=== PATIENT | male | born 1975 | race Hispanic/Latino ===

== ENCOUNTER 2017-08-21 15:37 | Observation (INO) | payer OTHER ==
[~2017-08-21] VITALS: Ht 167.6 cm; Wt 106.3 kg
[2017-08-21 16:13] LABS: BASOPHILS % (AUTO) 0.8 % (0.0-5.0); EOSINOPHILS % (AUTO) 2.5 % (0.0-8.0); HEMATOCRIT 39.3 % (42-54); LYMPHOCYTES % (AUTO) 36.4 % (21.0-51.0); MEAN CORPUSCULAR HEMOGLOBIN 30.7 pg (27.0-33.0); MEAN CORPUSCULAR HGB CONC 35.3 g/dL (32.0-36.0); MONOCYTES % (AUTO) 7.9 % (3.0-13.0); NEUTROPHILS % (AUTO) 52.4 % (40.0-77.0); PLATELET COUNT (AUTO) 380 K/uL (130-400); RED BLOOD CELL COUNT(AUTO) 4.52 MIL/uL (4.50-6.20); RED CELL DISTRIBUTION WIDTH 13.2 % (11.0-15.5); WHITE BLOOD COUNT (AUTO) 8.5 K/uL (4.8-10.8)
[2017-08-21 16:22] LABS: POTASSIUM 3.3 mmol/L (3.5-5.1)
[2017-08-21 16:27] LABS: ALBUMIN 3.2 g/dL (3.5-5.0); BILIRUBIN,TOTAL 0.2 mg/dL (0.2-1.0); TOTAL PROTEIN, SERUM 7.5 g/dL (6.0-8.3)
[2017-08-21] MEDS ORDERED: ASPIRIN 325 MG TABLET ONE (17:55)
[2017-08-21] MEDS ORDERED: POTASSIUM CHLORIDE 20MEQ/100ML 100 ML IV PRN (21:15)
[2017-08-21] MEDS: LACTATED RINGERS 1000ML 1,000 ML IV SCH (21:15)
[2017-08-21] MEDS ORDERED: CEFTRIAXONE 1GM/D5W 50ML 50 ML IV SCH (21:15)
[2017-08-21] MEDS ORDERED: LABETALOL 20 MG/4 ML DISP.SYRIN IV PRN (21:15)
[2017-08-21] MEDS ORDERED: POTASSIUM CHLORIDE 10% ELIXIR 20 MEQ/15 ML UDCUP PO PRN (21:15)
[2017-08-21] MEDS ORDERED: HYDRALAZINE HCL 20 MG/ML VIAL IV PRN (21:15)
[2017-08-21] MEDS ORDERED: LIDOCAINE HCL-MPF 1% 2ML VIAL IVP PRN (21:15)
[2017-08-21] MEDS ORDERED: POTASSIUM CHLORIDE 20 MEQ ERTAB PO PRN (21:15)
[2017-08-21] MEDS ORDERED: LACTATED RINGERS 1000ML 1,000 ML IV ONE (22:21)
[2017-08-21] MEDS ORDERED: CEFTRIAXONE SODIUM 1 GM ONE (22:21)
[2017-08-22] VITALS: BP 138/87
[2017-08-22] MEDS ORDERED: ACETAMINOPHEN 325 MG TAB PO PRN
[2017-08-22] MEDS ORDERED: ONDA4TAB10 PO (00:57)
[2017-08-22] MEDS ORDERED: CIPR500S4 PO (00:57)
[2017-08-22] MEDS ORDERED: OSEL75 PO (00:57)
[2017-08-22] MEDS ORDERED: ACETAMINOPHEN 325 MG TAB ONE (01:16)
[2017-08-22] MEDS: GUAIFENESIN-DM 200/20 MG 10 ML PO PRN ×3 (02:42→21:14)
[2017-08-22 04:00] VITALS: BP 140/81
[2017-08-22 06:13] LABS: HEMATOCRIT 37.8 % (42-54); MEAN CORPUSCULAR HEMOGLOBIN 30.3 pg (27.0-33.0); MEAN CORPUSCULAR HGB CONC 34.9 g/dL (32.0-36.0); MEAN CORPUSCULAR VOLUME 86.8 fL (79-99); NUCLEATED RED BLOOD CELLS 0.1 % (0.0-0.19); PLATELET COUNT (AUTO) 388 K/uL (130-400); RED BLOOD CELL COUNT(AUTO) 4.36 MIL/uL (4.50-6.20); RED CELL DISTRIBUTION WIDTH 13.2 % (11.0-15.5); WHITE BLOOD COUNT (AUTO) 8.1 K/uL (4.8-10.8)
[2017-08-22 06:26] LABS: HEMOGLOBIN A1C 5.6 % (4.0-6.0)
[2017-08-22 06:31] LABS: B-TYPE NATRIURETIC PEPTIDE 15 pg/mL (0-100)
[2017-08-22 06:36] LABS: CREATININE 0.8 mg/dL (0.5-1.5); HIGH SENSITIVITY CRP 5.28 mg/L (0.0-3.0); POTASSIUM 3.9 mmol/L (3.5-5.1); THYROID STIMULATING HORMONE 1.95 uIU/mL (0.36-3.74)
[2017-08-22 08:43] VITALS: BP 127/66
[2017-08-22] MEDS ORDERED: PANTOPRAZOLE SODIUM 40 MG TABLET.DR PO SCH (09:00)
[2017-08-22] MEDS ORDERED: ASPIRIN 325 MG TABLET PO SCH (09:00)
[2017-08-22] MEDS: OSELTAMIVIR PHOSPHATE 75 MG CAP PO SCH ×2 (09:15→21:16)
[2017-08-22] MEDS: FAMOTIDINE/PF 20 MG/2 ML VIAL IV SCH ×2 (09:16→21:16)
[2017-08-22] MEDS: ENOXAPARIN SODIUM 40 MG/0.4 ML SYRINGE SQ SCH (09:16)
[2017-08-22] MEDS: FLUNISOLIDE 25 MCG/SPRAY 25 ML NASAL SPRY EN SCH ×2 (09:38→21:00)
[2017-08-22 11:00] VITALS: BP 131/80
[2017-08-22] MEDS: IBUPROFEN 400 MG TABLET PO PRN (13:04)
[2017-08-22] MEDS: LACTATED RINGERS 1000ML 1,000 ML IV SCH (13:31)
[2017-08-22 15:50] VITALS: BP 127/84
[2017-08-22 20:00] VITALS: BP 130/84
[2017-08-22] MEDS ORDERED: CEFTRIAXONE SODIUM 1 GM IVP SCH (21:00)
[2017-08-23] VITALS: BP 138/89
[2017-08-23 04:00] VITALS: BP 127/86
[2017-08-23 04:21] LABS: CREATININE 0.9 mg/dL (0.5-1.5); MAGNESIUM 2.1 mg/dL (1.80-2.40); POTASSIUM 4.1 mmol/L (3.5-5.1)
[2017-08-23 08:00] VITALS: BP 135/82
[2017-08-23] MEDS: OSELTAMIVIR PHOSPHATE 75 MG CAP PO SCH (08:33)
[2017-08-23] MEDS: FLUNISOLIDE 25 MCG/SPRAY 25 ML NASAL SPRY EN SCH (08:33)
[2017-08-23] MEDS: FAMOTIDINE/PF 20 MG/2 ML VIAL IV SCH (08:33)
[2017-08-23] MEDS: ENOXAPARIN SODIUM 40 MG/0.4 ML SYRINGE SQ SCH (08:34)
[2017-08-23] MEDS: IBUPROFEN 400 MG TABLET PO PRN (08:35)
[2017-08-23] MEDS ORDERED: ASPIRIN 81MG TAB.CHEW PO SCH (09:00)
[2017-08-23 11:00] VITALS: BP 123/86
[2017-08-23] MEDS ORDERED: ATOR20TA65 PO (11:02)
[2017-08-23] MEDS ORDERED: ASPI-1005 PO (11:02)
[2017-08-23] MEDS ORDERED: OSEL75 PO (11:02)
== END 2017-08-23 12:20 | disposition home or self-care (01) ==
LOC: EDH 15:37 → EDHIP 17:29 → 3BH 08-22 00:18
PROVIDERS: ADMIT Family Medicine; ATTEND Family Medicine
DX: J10.1 Influenza due to other identified influenza virus with other respiratory manifestations (principal); R00.0 Tachycardia, unspecified; E86.0 Dehydration; E87.6 Hypokalemia; Z83.3 Family history of diabetes mellitus; Z82.49 Family history of ischemic heart disease and other diseases of the circulatory system; E78.5 Hyperlipidemia, unspecified; E66.9 Obesity, unspecified
CPT/HCPCS: 36415 ×3; 70450; 70551; 71045; 80048 ×2; 80053; 80061; 83036; 83735; 83880; 84443; 85025; 85027; 86141; 87633; 93005; 93306; 93880; 96361; 96372 ×2; 96374; 96375; 96376 ×2; 99285; A4218; G0378 ×43; J0696 ×3; J1650 ×2; J3490 ×3; J7120 ×2